=== PATIENT | male | born 1960 | race American Indian/Alaskan Native ===

== ENCOUNTER 2023-08-15 18:42 | Emergency (ER) | payer MEDICARE, MEDICAID ==
[~2023-08-15] VITALS: Ht 177.8 cm; Wt 74.8 kg
[~2023-08-15 18:42] MED LIST: ATOR40TA PO; GLIP5TAB23 PO; LISI40TA13 PO; METF-900 PO
[2023-08-15] MEDS: normal saline 1000ML IV soln IVB ONE (18:50)
[2023-08-15] MEDS ORDERED: iohexol 350MG/ML 100ml bottle IV ONE (19:05)
[2023-08-15] MEDS: morphine 4 MG/ML inj SYRINge IV STA (19:26)
[2023-08-15 19:29] LABS: BASOPHILS % (AUTO) 0.4 % (0-1); EOSINOPHILS # (AUTO) 0.1 X10'3 (0-0.9); EOSINOPHILS % (AUTO) 1.3 % (0-6); HEMATOCRIT 42.8 % (42.0-52.0); HEMOGLOBIN 14.5 g/dl (14.0-17.9); LYMPHOCYTES # (AUTO) 2.5 X10'3 (1.1-4.8); LYMPHOCYTES % (AUTO) 39.6 % (21-51); MEAN CORPUSCULAR HEMOGLOBIN 29.9 PG (27.0-31.0); MEAN CORPUSCULAR VOLUME 87.9 FL (78-98); MEAN PLATELET VOLUME 8.3 FL (7.4-10.4); MONOCYTES # (AUTO) 0.5 X10'3 (0-0.9); MONOCYTES % (AUTO) 8.3 % (2-12); NEUTROPHILS # (AUTO) 3.1 X10'3 (1.8-7.7); NEUTROPHILS % (AUTO) 50.4 % (42-75); PLATELET COUNT 235 X10'3 (140-440); RED BLOOD COUNT 4.87 X10'6 (4.70-6.10); WHITE BLOOD COUNT 6.2 X10'3 (4.5-11.0)
[2023-08-15] MEDS: TETanus/Pertussis (Acell)/Diphther VAC/PF (Tdap-Adult) 0.5ml syringe IMVAC ONE (19:32)
[2023-08-15 19:40] LABS: PROTHROMBIN TIME 10.9 SECONDS (9.0-12.0)
[2023-08-15 19:52] LABS: ALANINE AMINOTRANSFERASE 24 U/L (12-78); ALBUMIN 3.4 G/DL (3.4-5.0); ALKALINE PHOSPHATASE 76 IU/L (46-116); ANION GAP 6 (8-16); ASPARTATE AMINO TRANSFERASE 17 U/L (10-37); BILIRUBIN,TOTAL 0.5 MG/DL (0.1-1.0); BLOOD UREA NITROGEN 15 MG/DL (7-18); BUN/CREATININE RATIO 13.4 (10.0-20.0); CHLORIDE 101 MMOL/L (99-107); CREATININE 1.12 MG/DL (0.60-1.10); GLUCOSE 292 MG/DL (70-104); LIPASE 27 U/L (16-77); MAGNESIUM 1.9 MG/DL (1.5-2.4); PRO BRAIN NATRIURETIC PEPTIDE 53 PG/ML (0-125); SODIUM 134 MMOL/L (135-145); TOTAL CARBON DIOXIDE 27.3 MMOL/L (24-32); TOTAL PROTEIN 6.7 G/DL (6.4-8.2); eCRCL 68 ML/MIN; eGFR 66 ML/MIN
[2023-08-15 20:09] LABS: BILIRUBIN,DIRECT 0.1 MG/DL (0-0.3); CALCIUM 8.5 MG/DL (8.5-10.1); POTASSIUM 3.6 MMOL/L (3.5-5.1)
[2023-08-15] MEDS: LIDOcaine/epinephrine/tetracaine TOPICAL sol 3 ML syringe TOP ONE (20:50)
[2023-08-15] MEDS: LIDOcaine 1% 30ml preserv. free vial IJ STA (23:22)
[2023-08-15 23:46] VITALS: BP 147/83; PULSE 74; RESP 18; TEMP 98; O2SAT 98
== END 2023-08-15 23:46 | disposition home or self-care (01) ==
LOC: ER 18:43
DX: S21.112A Laceration without foreign body of left front wall of thorax without penetration into thoracic cavity, initial encounter (principal); E11.9 Type 2 diabetes mellitus without complications; Z79.899 Other long term (current) drug therapy; Z79.84 Long term (current) use of oral hypoglycemic drugs; W26.0XXA Contact with knife, initial encounter; Y93.89 Activity, other specified; Y92.89 Other specified places as the place of occurrence of the external cause; Y99.8 Other external cause status
CPT/HCPCS: 12004; 36415; 71045; 71260; 74177; 80048; 80076; 83690; 83735; 83880; 84484; 85025; 85610; 86870; 86885; 86900; 86901; 86902; 86905; 90715; 93005; 96361; 96374; 99291; A6258; A6402; G0008; J2270; J3490; J7030; Q9967; Z7610; 90471; A6449

== ENCOUNTER 2024-09-05 09:31 | Emergency (ER) | payer MEDICARE, MEDICAID ==
[~2024-09-05] VITALS: Ht 180.3 cm; Wt 71.8 kg
[~2024-09-05 09:31] MED LIST changes: -GLIP5TAB23 PO; +INSU100V9 SQ; -METF-900 PO
[2024-09-05 09:35] VITALS: BP 152/83; PULSE 88; RESP 16; TEMP 98.6; O2SAT 98
--- NOTE | 2024-09-05 10:09 | Physician Documentation ---
History of Present Illness ~ Chief Complaint: Abscess Stated Complaint: REFERRED FOR IV ABX Time Seen by MD: 09:41 Primary Medical Doctor: DR. GRIFFIN [facility] This is a 64-year-old male who presents with area of pain and swelling to the skin of his suprapubic area, patient reports no fever. Tetanus Within 5 Years: No (GIVEN THIS VISIT 08/14) Medication Reconciliation Allergies: Coded Allergies: No Known Allergies (Unverified , 06/17/24) Scheduled Atorvastatin Calcium* (Lipitor*), 10 MG PO DAILY, (Reported) Doxycycline Hyclate (Doxycycline Hyclate), 1 CAP PO Q12H Insulin Glargine,Hum.rec.anlog (Lantus), 15 UNIT SQ HS Lisinopril* (Lisinopril*), 5 MG PO DAILY, (Reported) Past Medical History Past Medical History: Diabetes Review of Systems ROS Pain and swelling to skin of suprapubic area as stated above in the HPI, otherwise all systems are reviewed and negative. Physical Exam Vital Signs: Temperature: 98.6, Heart Rate: 88, Respiratory Rate: 16, BP: 152/83, Pulse Oximetry: 98, Weight: 71.800 Physical Exam VITALS: Reviewed and as above. GENERAL: Alert, nontoxic appearing, no apparent distress. RESPIRATORY: No increased work of breathing, no respiratory distress, speaking in full clear sentences SKIN: Approximately 4 cm x 3 cm area of erythema with excoriation to skin of the suprapubic area Procedures I & D Procedure : Site: Suprapubic area Anesthesia: Lidocaine w/ Epi Volume Anesthetic (mls): 5 Blade Size: 11 Prep/Supplies: drapes applied, dressing applied Incision: mass incised, pus drained, blood drained Tolerated Procedure Well?: yes, no complications Progress Results/Orders Results/Orders Orders - SHAKIRA MEYER Laceration/I&D Tray Set Up (09/05/24 10:36) Completed Orders - SHAKIRA MEYER Lidocaine 1% W/Epi 1:100,000 (Xylocaine (09/05/24 10:40) Vital Signs 09/05/24 09:35 Temp 98.6 Pulse 88 Resp 16 B/P (MAP) 152/83 Pulse Ox 98 Medical Decision Making Findings This 64-year-old male presented with an area of pain, redness, and swelling to his suprapubic area, consistent with abscess with surrounding cellulitis based on localized erythema with fluctuance and induration on physical exam. History is reassuring as patient reports no fever, chills, or other system thing symptoms. There is no evidence of rapidly progressing symptoms, crepitus, pain out of proportion, pain away from site or other signs/symptoms concerning for necrotizing fasciitis, myositis, or other deep tissue infection. I considered other high-risk diagnoses such as acute osteomyelitis, deep space abscess, septic joint, foreign body, or deep vein thrombosis or septic phlebitis. Abscess was incised and drained without complication with a small amount of purulent material expressed, the cavity was limited and packing not indicated. Physical exam is otherwise benign, patient is non-toxic and well-appearing, afebrile, and vital signs are stable. I discussed with patient regarding potential diagnosis and discharge plan. Patient provided home care instructions and follow up instructions. Patient given strict return precautions including rapidly progressing symptoms, pain out of proportion/severe pain, mucosal involvement, and/or fever > 100.4. Patient verbalized understanding of return precautions, home care instructions, and follow up instructions. Differential Dx:Considerations: Include: Bacteremia, Cellulitis, Erysipelas, Gas gangrene, Hidrademitis suppurativa, Impetigo, Lymphangitis, Osteromyelitis, Septicemia Departure Disposition: 01 HOME / SELF CARE / HOMELESS Impression: Primary Impression: Abscess Condition: Improved Discharge Instructions: Abscess, Care After, Incision and Drainage Additional Instructions: Use warm compresses on the area two to 3 times a day and then wash the area. Otherwise keep the area clean dry and covered. Please take the antibiotics as prescribed. Please follow up with your primary care provider in the next few days. Please return to the emergency department for any new or worsening concerning symptoms including but not limited to worsening pain and swelling to the area, or if you develop a fever that does not lower with ibuprofen or Tylenol. You may use [id number] ibuprofen and or Tylenol as needed for pain as directed by [id number] packaging. Referrals: NO PRIMARY CARE PROVIDER (PCP) Prescriptions Doxycycline Hyclate (Doxycycline Hyclate) 100 Mg Capsule 1 CAP PO Q12H for 7 Days, #14 CAP Prov: SHAKIRA MEYER 6/26/25 Education Educated: Patient Educated regarding: diagnosis, treatment, prognosis, need for follow up Signature Scribe Signature: No scribe Attestation: The note accurately reflects work and decisions made by me.BIPIN Holman 09/05/24 19:57 SHAKIRA MEYER Sep 05, 2024 10:09
[2024-09-05] MEDS: LIDOcaine 1% W/epiNEPHrine 1:100,000 20ml vial IJ ONE (10:58)
[2024-09-05] MEDS ORDERED: DOXY-224 PO (11:46)
== END 2024-09-05 12:04 | disposition home or self-care (01) ==
LOC: ER 09:32
DX: L02.818 Cutaneous abscess of other sites (principal); E11.9 Type 2 diabetes mellitus without complications; Z79.899 Other long term (current) drug therapy
CPT/HCPCS: 10060; 99283; A6222; A6402; Z7610; A6449